=== PATIENT | male | born 1995 | race Caucasian/White ===

== ENCOUNTER 2020-11-07 17:01 | Emergency (ER) | payer OTHER ==
[~2020-11-07] VITALS: Ht 172.7 cm; Wt 90.0 kg
--- NOTE | 2020-11-07 18:04 | REP ---
INDICATION: twisted right ankle. COMPARISON: None TECHNIQUE: Four views FINDINGS: Smoothly marginated well corticated ossific densities are seen 1 distal to the distal fibular tip and the other distal to the medial malleolus. There is no acute fracture, dislocation, or subluxation. The mortise is intact.. IMPRESSION: Accessory ossicles versus old healed injuries as described above. There is no evidence of an acute abnormality. <Electronically signed by Srikanth Barbour > 11/07/20 1800
[2020-11-07] MEDS ORDERED: NAPR-837 PO (20:55)
[2020-11-07 21:06] VITALS: BP 140/80
--- NOTE | 2020-11-07 21:13 | REPVR ---
PROCEDURE INFORMATION: Exam: XR Right Foot Exam date and time: 11/07/2020 8:38 PM Age: 25 years old Clinical indication: Pain; Foot; Right; Additional info: Trauma TECHNIQUE: Imaging protocol: XR Right foot. Views: 3 or more views. COMPARISON: CR Ankle, complete RIGHT 11/07/2020 5:47 PM FINDINGS: Bones/joints: Normal. Soft tissues: Normal. IMPRESSION: No acute findings. Electronically signed by: Blayne Perez On 11/07/2020 21:13:16 PM
== END 2020-11-07 21:32 | disposition home or self-care (01) ==
LOC: M ED 17:01
DX: S93.401A Sprain of unspecified ligament of right ankle, initial encounter (principal); S93.601A Unspecified sprain of right foot, initial encounter; X50.9XXA Other and unspecified overexertion or strenuous movements or postures, initial encounter; Y92.59 Other trade areas as the place of occurrence of the external cause; Y93.89 Activity, other specified; Y99.8 Other external cause status; F17.200 Nicotine dependence, unspecified, uncomplicated